=== PATIENT | male | born 1945 | race Caucasian/White ===

== ENCOUNTER 2018-07-17 15:25 | Outpatient (CLI) | payer MEDICARE, BC | END 2018-07-17 23:59 | disposition home or self-care (01) | LOC: RAD 15:25 | PROVIDERS: ATTEND Family Medicine | DX: R19.8 Other specified symptoms and signs involving the digestive system and abdomen (principal) | CPT/HCPCS: 93978 ==

== ENCOUNTER 2019-02-15 20:31 | Inpatient (IN) | payer MEDICARE, BC | END 2019-02-20 15:25 | disposition home or self-care (01) | LOC: SUR 3N 02-16 00:31 → ER 20:31 → PCU 3S 02-17 21:00 | DX: A41.9 Sepsis, unspecified organism (principal); J18.9 Pneumonia, unspecified organism; N17.9 Acute kidney failure, unspecified; E87.1 Hypo-osmolality and hyponatremia; I48.91 Unspecified atrial fibrillation ==